=== PATIENT | male | born 1980 | race African-American/Black ===

== ENCOUNTER 2016-12-30 22:31 | Emergency (ER) | payer OTHER ==
--- NOTE | 2016-12-31 00:46 | ED NURSING NOTES ---
Clinical Report - Nurses [facility] [address] [place] [address] 12/30/2016 22:32 Patient: RENU OLIVARES TRIAGE Triage time 22:54. Acuity: LEVEL 4. Chief Complaint: SORE THROAT. Alert. No acute distress. --23:00 Jordana Baer R.N. 22:54 12/30/16. BP: 117/86. HR: 89. RR: 15 (regular and unlabored). O2 saturation: 98% on room air. Temp: 98.5 F (oral). Carpenter-Summers pain scale: 4/10. --23:00 Jordana Baer R.N. Weight: 90.7 kg stated. Height/Length: 70 inches Per Patient. BMI: 28.7. --22:59 Jordana Baer R.N. Medications ASA Oral 81mg , daily . PredniSONE Oral 5 mg, daily. Tacrolimus Oral (Capsule 1 mg) 4 capsules , 2 x daily . Vitamin D Oral, daily. --22:55 Jordana Baer R.N. Myfortic Oral (Tablet Delayed Release 360 mg) 1 tablet, twice daily. --22:56 Jordana Baer R.N. Complete Oral. --22:56 Jordana Baer R.N. OTC Allergy. --22:56 Jordana Baer R.N. Allergies HYDROcodone Bitartrate. Vancomycin. --22:55 Jordana Baer R.N. History Arrived by private vehicle. Historian: patient. Accompanied by family. Primary physician (). Onset. (about 2 - 3 days ago). 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 PAST MEDICAL HX: Immunizations: up-to-date. SOCIAL HX: Never smoker. No alcohol use or drug use. NUTRITIONAL RISK ASSESSMENT: The nutritional risk assessment revealed no deficiencies. FUNCTIONAL ASSESSMENT: Functional assessment: no impairments noted. --23:00 Jordana Baer R.N. PROBLEMS: Pharyngitis. Bronchitis. Cancer. Kidney transpant x 2. --22:57 Jordana Baer R.N. ADDITIONAL SURGERIES: Kidney transplant x 2 . Splenectomy. Thyroid Surgery. Ureter surgery . --:57 Jordana Baer R.N. Interventions ID band on patient. To treatment room. --23:00 Jordana Baer R.N. PHYSICAL ASSESSMENT Ambulatory to room. GENERAL / NEURO / PSYCH: Alert. Oriented X 4. Appears in no acute distress. HEENT: Hoarse voice. Mucous membranes are pink. RESPIRATORY: Respirations not labored. CVS: Capillary refill less than 2 seconds. SKIN: Skin is warm and dry. --23: Jordana Baer R.N. NURSING PROGRESS NOTES Head of bed elevated. Two patient identifiers checked. Call light placed in reach. Side rails up x 1. Bed placed in lowest position. Brakes of bed on. --23: Jordana Baer R.N. Patient ready for evaluation- chart flagged. --23:01 Jordana Baer R.N. 23:42 12/30/2016 Depo-Medrol IM 80 mg given. Given in the right ventral gluteus. Allergies verified and confirmed 5 rights. --23:42 Jordana Baer R.N. ( pt given ice water, per pt request.). --00:31 Jordana Baer R.N. 00:47 12/31/2016 Vistaril (HydrOXYzine Pamoate) PO Capsules 50 mg given. Allergies verified, confirmed 5 rights and sedative warning given to the patient. --00:48 Jordana Baer R.N. DISPOSITION / DISCHARGE 00:48 12/31/16. BP: 123/89. HR: 91. RR: 15. O2 saturation: 98% on room air. Temp: deferred. Carpenter-Summers pain scale: 10. --00:48 Jordana Baer R.N. Condition at departure: stable. No learning barriers present. Discharge instructions provided and reviewed with the patient. Reviewed medication(s) side effects, precautions, dosing and course information. Prescription(s) given to the patient. Patient verbalized understanding. Written instructions provided in Divehi. The patient was discharged home and accompanied by family. He left the Emergency Department ambulatory and via private vehicle. Spouse driving. --00:51 Jordana Baer R.N. Locked/Released at 12/31/2016 0:51 by Jordana Baer R.N.
--- NOTE | 2016-12-31 00:46 | ED CLINICAL REPORT ---
Clinical Report - Physicians/Mid Levels [facility] [address] [place] [address] 12/30/2016 22:32 Patient: RENU OLIVARES Time Seen: 23:03; initial patient contact. Arrived- By private vehicle. Historian- patient. HISTORY OF PRESENT ILLNESS Chief Complaint: COUGH and SORE THROAT. This started about 2 1/2 days ago and is still present. It was gradual in onset and has been constant. The illness is described as mild. The patient has had a cough, a sore throat, hoarseness, nasal congestion and sinus drainage. He has had a nasal discharge. No sputum production, difficulty breathing, chest discomfort, fever or chills. No sinus pressure or ear pain. Additional history - No known contact with a sick individual. Similar symptoms previously: None. Recent medical care: Not recently seen/assessed. REVIEW OF SYSTEMS No headache, nausea or vomiting. He has had mild hay fever. It has been similar to previous symptoms. All systems otherwise negative, except as recorded above. PAST HISTORY Pharyngitis. Bronchitis. Cancer. Kidney transpant x 2. SURGERIES: Kidney transplant x 2 . Splenectomy. Thyroid Surgery. Ureter surgery. SOCIAL HISTORY Never smoker. No alcohol use or drug use. ADDITIONAL NOTES The nursing notes have been reviewed. PHYSICAL EXAM Vital Signs: 12/30/2016 22:54 BP: 117/86. HR: 89. RR: 15. O2 saturation: 98%. Temp: 98.5 F. Carpenter-Summers pain scale: 4/10. Have been reviewed as normal. Appearance: Alert. No acute distress. Eyes: Mild, diffuse redness of the right conjunctiva; mild, diffuse redness of the left conjunctiva. ENT: Moderate generalized pharyngeal erythema with right tonsillar swelling and left tonsillar swelling. No right tonsillar exudate or left tonsillar exudate. Neck: No lymphadenopathy. CVS: Normal heart rate and rhythm. Heart sounds normal. Respiratory: No respiratory distress. Breath sounds normal. Skin: Skin warm and dry. Normal skin color. No rash. Neuro: Oriented X 3. LABS, X-RAYS, AND EKG Laboratory Tests: Culture, Strep Screen: (DANETTE: 12/30/2016 23:20) ( MsgRcvd 12/31/2016 00:11) Final results Test Result Flag Units (Reference) RAPID STREP SCREEN - THROAT DATE: 12/31/16 NEGATIVE SCREEN: RAPID STREP SCREEN NEGATIVE; CONFIRMATION TO FOLLOW . PROGRESS AND PROCEDURES Disposition: Discharged home in good and improved condition. Condition: good. CLINICAL IMPRESSION Acute viral rhinitis. Acute seasonal allergic rhinitis secondary to pollen. INSTRUCTIONS Do not work tomorrow. Your Current Medications: CONTINUE TAKING THE FOLLOWING MEDICATIONS: ASA Oral : 81mg daily. Myfortic Oral : Tablet Delayed Release 360 mg, 1 tablet twice daily. OTC Allergy*. PredniSONE Oral : 5 mg daily. Complete Oral. Tacrolimus Oral : Capsule 1 mg, 4 capsules 2 x daily. Vitamin D Oral : daily. Prescription Medications: Flonase nasal spray: 2 sprays to each nostril daily. Dispense one (1) unit. No refills. Substitution is permissible Follow-up: Follow up with your doctor in about two days if not well. Call for an appointment. Screening today revealed the patient's blood pressure to be in the pre-hypertensive range. The patient should follow up with a primary care provider for blood pressure management. (Electronically signed by Aren Shepard Dr. 12/31/2016 9:18)
--- NOTE | 2016-12-31 00:46 | ED NURSING NOTES ---
Clinical Report - Nurses [facility] [address] [place] [address] 12/30/2016 22:32 Patient: RENU OLIVARES TRIAGE Triage time 22:54. Acuity: LEVEL 4. Chief Complaint: SORE THROAT. Alert. No acute distress. --23:00 Jordana Baer R.N. 22:54 12/30/16. BP: 117/86. HR: 89. RR: 15 (regular and unlabored). O2 saturation: 98% on room air. Temp: 98.5 F (oral). Carpenter-Summers pain scale: 4/10. --23:00 Jordana Baer R.N. Weight: 90.7 kg stated. Height/Length: 70 inches Per Patient. BMI: 28.7. --22:59 Jordana Baer R.N. Medications ASA Oral 81mg , daily . PredniSONE Oral 5 mg, daily. Tacrolimus Oral (Capsule 1 mg) 4 capsules , 2 x daily . Vitamin D Oral, daily. --22:55 Jordana Baer R.N. Myfortic Oral (Tablet Delayed Release 360 mg) 1 tablet, twice daily. --22:56 Jordana Baer R.N. Complete Oral. --22:56 Jordana Baer R.N. OTC Allergy. --22:56 Jordana Baer R.N. Allergies HYDROcodone Bitartrate. Vancomycin. --22:55 Jordana Baer R.N. History Arrived by private vehicle. Historian: patient. Accompanied by family. Primary physician (). Onset. (about 2 - 3 days ago). 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 PAST MEDICAL HX: Immunizations: up-to-date. SOCIAL HX: Never smoker. No alcohol use or drug use. NUTRITIONAL RISK ASSESSMENT: The nutritional risk assessment revealed no deficiencies. FUNCTIONAL ASSESSMENT: Functional assessment: no impairments noted. --23:00 Jordana Baer R.N. PROBLEMS: Pharyngitis. Bronchitis. Cancer. Kidney transpant x 2. --22:57 Jordana Baer R.N. ADDITIONAL SURGERIES: Kidney transplant x 2 . Splenectomy. Thyroid Surgery. Ureter surgery . --:57 Jordana Baer R.N. Interventions ID band on patient. To treatment room. --23:00 Jordana Baer R.N. PHYSICAL ASSESSMENT Ambulatory to room. GENERAL / NEURO / PSYCH: Alert. Oriented X 4. Appears in no acute distress. HEENT: Hoarse voice. Mucous membranes are pink. RESPIRATORY: Respirations not labored. CVS: Capillary refill less than 2 seconds. SKIN: Skin is warm and dry. --23: Jordana Baer R.N. NURSING PROGRESS NOTES Head of bed elevated. Two patient identifiers checked. Call light placed in reach. Side rails up x 1. Bed placed in lowest position. Brakes of bed on. --23: Jordana Baer R.N. Patient ready for evaluation- chart flagged. --23:01 Jordana Baer R.N. 23:42 12/30/2016 Depo-Medrol IM 80 mg given. Given in the right ventral gluteus. Allergies verified and confirmed 5 rights. --23:42 Jordana Baer R.N. ( pt given ice water, per pt request.). --00:31 Jordana Baer R.N. 00:47 12/31/2016 Vistaril (HydrOXYzine Pamoate) PO Capsules 50 mg given. Allergies verified, confirmed 5 rights and sedative warning given to the patient. --00:48 Jordana Baer R.N. DISPOSITION / DISCHARGE 00:48 12/31/16. BP: 123/89. HR: 91. RR: 15. O2 saturation: 98% on room air. Temp: deferred. Carpenter-Summers pain scale: 10. --00:48 Jordana Baer R.N. Condition at departure: stable. No learning barriers present. Discharge instructions provided and reviewed with the patient. Reviewed medication(s) side effects, precautions, dosing and course information. Prescription(s) given to the patient. Patient verbalized understanding. Written instructions provided in Luxembourgish. The patient was discharged home and accompanied by family. He left the Emergency Department ambulatory and via private vehicle. Spouse driving. --00:51 Jordana Baer R.N. Locked/Released at 12/31/2016 0:51 by Jordana Baer R.N.
--- NOTE | 2016-12-31 00:46 | ED CLINICAL REPORT ---
Clinical Report - Physicians/Mid Levels [facility] [address] [place] [address] 12/30/2016 22:32 Patient: RENU OLIVARES Time Seen: 23:03; initial patient contact. Arrived- By private vehicle. Historian- patient. HISTORY OF PRESENT ILLNESS Chief Complaint: COUGH and SORE THROAT. This started about 2 1/2 days ago and is still present. It was gradual in onset and has been constant. The illness is described as mild. The patient has had a cough, a sore throat, hoarseness, nasal congestion and sinus drainage. He has had a nasal discharge. No sputum production, difficulty breathing, chest discomfort, fever or chills. No sinus pressure or ear pain. Additional history - No known contact with a sick individual. Similar symptoms previously: None. Recent medical care: Not recently seen/assessed. REVIEW OF SYSTEMS No headache, nausea or vomiting. He has had mild hay fever. It has been similar to previous symptoms. All systems otherwise negative, except as recorded above. PAST HISTORY Pharyngitis. Bronchitis. Cancer. Kidney transpant x 2. SURGERIES: Kidney transplant x 2 . Splenectomy. Thyroid Surgery. Ureter surgery. SOCIAL HISTORY Never smoker. No alcohol use or drug use. ADDITIONAL NOTES The nursing notes have been reviewed. PHYSICAL EXAM Vital Signs: 12/30/2016 22:54 BP: 117/86. HR: 89. RR: 15. O2 saturation: 98%. Temp: 98.5 F. Carpenter-Summers pain scale: 4/10. Have been reviewed as normal. Appearance: Alert. No acute distress. Eyes: Mild, diffuse redness of the right conjunctiva; mild, diffuse redness of the left conjunctiva. ENT: Moderate generalized pharyngeal erythema with right tonsillar swelling and left tonsillar swelling. No right tonsillar exudate or left tonsillar exudate. Neck: No lymphadenopathy. CVS: Normal heart rate and rhythm. Heart sounds normal. Respiratory: No respiratory distress. Breath sounds normal. Skin: Skin warm and dry. Normal skin color. No rash. Neuro: Oriented X 3. LABS, X-RAYS, AND EKG Laboratory Tests: Culture, Strep Screen: (DANETTE: 12/30/2016 23:20) ( MsgRcvd 12/31/2016 00:11) Final results Test Result Flag Units (Reference) RAPID STREP SCREEN - THROAT DATE: 12/31/16 NEGATIVE SCREEN: RAPID STREP SCREEN NEGATIVE; CONFIRMATION TO FOLLOW . PROGRESS AND PROCEDURES Disposition: Discharged home in good and improved condition. Condition: good. CLINICAL IMPRESSION Acute viral rhinitis. Acute seasonal allergic rhinitis secondary to pollen. INSTRUCTIONS Do not work tomorrow. Your Current Medications: CONTINUE TAKING THE FOLLOWING MEDICATIONS: ASA Oral : 81mg daily. Myfortic Oral : Tablet Delayed Release 360 mg, 1 tablet twice daily. OTC Allergy*. PredniSONE Oral : 5 mg daily. Complete Oral. Tacrolimus Oral : Capsule 1 mg, 4 capsules 2 x daily. Vitamin D Oral : daily. Prescription Medications: Flonase nasal spray: 2 sprays to each nostril daily. Dispense one (1) unit. No refills. Substitution is permissible Follow-up: Follow up with your doctor in about two days if not well. Call for an appointment. Screening today revealed the patient's blood pressure to be in the pre-hypertensive range. The patient should follow up with a primary care provider for blood pressure management. (Electronically signed by Aren Shepard Dr. 12/31/2016 9:18)
--- NOTE | 2016-12-31 00:47 | ED ORDER SUMMARY ---
..... Patient: RENU OLIVARES OrderSheet [facility] VisitID: [id number] [address] [place] [address] 36y, M Registration Date/Time: 12/30/2016 ORDER SHEET Weight: 90.7 kg (stated) Allergies: HYDROcodone Bitartrate, Vancomycin GENERAL ORDERS: Culture, Strep Screen Urgent (23:21 12/30/2016 Henrik Schneider) (23:42 RCollier R.N.) MEDICATION ORDERS: Depo-Medrol IM 80 mg (NOW) (23:21 12/30/2016 Henrik Schneider) (Ack 23:24 RCollier R.N.) (23:42 RCollier R.N.) Vistaril PO 50 mg (NOW) (00:41 12/31/2016 Henrik Schneider) (Ack 0:41 RCollier R.N.) (0:48 RCollier R.N.) IV FLUIDS: ORDER SHEET NOTES: [Electronically signed by Jordana Baer R.N. (00:51 12/31/2016)] [Electronically signed by Aren Shepard Dr. (09:18 12/31/2016)] [Electronically locked/signed by Jordana Baer R.N. (00:51 12/31/2016)]
--- NOTE | 2016-12-31 00:47 | ED ORDER SUMMARY ---
..... Patient: RENU OLIVARES OrderSheet [facility] VisitID: [id number] [address] [place] [address] 36y, M Registration Date/Time: 12/30/2016 ORDER SHEET Weight: 90.7 kg (stated) Allergies: HYDROcodone Bitartrate, Vancomycin GENERAL ORDERS: Culture, Strep Screen Urgent (23:21 12/30/2016 Henrik Schneider) (23:42 RCollier R.N.) MEDICATION ORDERS: Depo-Medrol IM 80 mg (NOW) (23:21 12/30/2016 Henrik Schneider) (Ack 23:24 RCollier R.N.) (23:42 RCollier R.N.) Vistaril PO 50 mg (NOW) (00:41 12/31/2016 Henrik Schneider) (Ack 0:41 RCollier R.N.) (0:48 RCollier R.N.) IV FLUIDS: ORDER SHEET NOTES: [Electronically signed by Jordana Baer R.N. (00:51 12/31/2016)] [Electronically signed by Aren Shepard Dr. (09:18 12/31/2016)] [Electronically locked/signed by Jordana Baer R.N. (00:51 12/31/2016)]
--- NOTE | 2016-12-31 09:18 | ED MED RECONCILIATION SUMMARY ---
Patient: RENU OLIVARES Medication Reconciliation Report [facility] VisitID: [id number] [place] [address] 36y, M Registration Date/Time: 12/30/2016 Weight: 90.7 kg Height/Length: 70 in. BMI: 28.7 ALLERGIES: HYDROcodone Bitartrate, Vancomycin The patient's Home Medications are listed below: CONTINUE TAKING THE FOLLOWING MEDICATIONS: ASA Oral 81mg , daily Myfortic Oral (360 mg) 1 tablet, twice daily OTC Allergy PredniSONE Oral 5 mg, daily Complete Oral Tacrolimus Oral (1 mg) 4 capsules , 2 x daily Vitamin D Oral, daily The source(s) of the original Home Medication information: Not obtained. The following Medications were given to the patient in the Emergency Department: Depo-Medrol [IM] IM 80 mg, administered: 12/30/2016 11:42:00 PM Vistaril [PO] PO 50 mg, administered: 12/31/2016 12:47:00 AM The following Medications were prescribed to the patient: Flonase nasal spray: 2 sprays to each nostril daily. Dispense one (1) unit. No refills. Substitution is permissible -- Aren Shepard Dr.
--- NOTE | 2016-12-31 09:18 | ED MAR SUMMARY ---
..... Medication Administration Record [facility] [address] [place] [address] Patient: RENU OLIVARES Visit ID: [id number] 36y, M Weight: 90.7 kg Height/Length: 70 in BMI: 28.7 ALLERGIES: HYDROcodone Bitartrate, Vancomycin Given 23:42 12/30/2016 Jordana Baer, RDavidN. Medication Administered: DEPO-MEDROL [IM], Dose: 80 mg IM. Medication Ordered: Depo-Medrol IM 80 mg (NOW). Given 00:47 12/31/2016 Jordana Baer, R.N. Medication Administered: VISTARIL [PO] (HYDROXYZINE PAMOATE), Dose: 50 mg Capsules PO. Medication Ordered: Vistaril PO 50 mg (NOW).
--- NOTE | 2016-12-31 09:18 | ED DISCHARGE INSTRUCTIONS ---
Patient: RENU OLIVARES General Instructions [facility] VisitID: [id number] [place] [address] 36y, M Registration Date/Time: 12/30/2016 Acute viral rhinitis. Acute seasonal allergic rhinitis secondary to pollen. INSTRUCTIONS Do not work tomorrow. Your Current Medications: CONTINUE TAKING THE FOLLOWING MEDICATIONS: ASA Oral : 81mg daily. Myfortic Oral : Tablet Delayed Release 360 mg, 1 tablet twice daily. OTC Allergy*. PredniSONE Oral : 5 mg daily. Complete Oral. Tacrolimus Oral : Capsule 1 mg, 4 capsules 2 x daily. Vitamin D Oral : daily. Prescription Medications: Flonase nasal spray: 2 sprays to each nostril daily. Dispense one (1) unit. No refills. Substitution is permissible Follow-up: Follow up with your doctor in about two days if not well. Call for an appointment. Screening today revealed the patient's blood pressure to be in the pre-hypertensive range. The patient should follow up with a primary care provider for blood pressure management. ADDITIONAL INFORMATION Viral Respiratory Illness [Adult] You have an Upper Respiratory Illness (URI) caused by a virus. This illness is contagious during the first few days. It is spread through the air by coughing and sneezing or by direct contact (touching the sick person and then touching your own eyes, nose or mouth). Most viral illnesses go away within 7-10 days with rest and simple home remedies. Sometimes, the illness may last for several weeks. Antibiotics will not kill a virus and are generally not prescribed for this condition. Home Care: 1) If symptoms are severe, rest at home for the first 2-3 days. When you resume activity, don't let yourself get too tired. 2) Avoid being exposed to cigarette smoke (yours or others). 3) Tylenol (acetaminophen) or ibuprofen (Advil, Motrin) will help fever, muscle aching and headache. (Persons under 18 with fever should not take aspirin since this may cause liver damage.) 4) Your appetite may be poor, so a light diet is fine. Avoid dehydration by drinking 6-8 glasses of fluids per day (water, soft drinks, juices, tea, soup). Extra fluids will help loosen secretions in the nose and lungs. 5) Ofua-tex-iyjvuja cold medicines will not shorten the length of time youre sick, but they may be helpful for the following symptoms: cough (Robitussin DM); sore throat (Chloraseptic lozenges or spray); nasal and sinus congestion (Actifed, Sudafed, Chlortrimeton). Follow Up with your doctor or as advised if you dont improve over the next week. Get Prompt Medical Attention if any of the following occur: -- Cough with lots of colored sputum (mucus) or blood in your sputum -- Chest pain, shortness of breath, wheezing or have trouble breathing -- Severe headache; face, neck or ear pain -- Fever over 100.4 F (38.0 C) for more than three days -- You cant swallow due to throat pain Nasal Allergy Nasal Allergy, also called Allergic Rhinitis occurs after exposure to pollen, molds, mildew, animal dander (scales from animal skin, hair and feathers), dust, smoke and fumes. (These are called allergens). When pollen causes a nasal allergy it is commonly called Hay Fever. When these particles contact the lining of the nose, eyes, eyelids, sinuses or throat, they cause the cells to release a chemical called histamine. Histamine may cause a watery discharge from the eyes or nose. It may also cause violent sneezing, nasal congestion, itching of the eyes, nose, throat and mouth. Prevention: Nasal allergy cannot be cured but symptoms can be reduced. Avoid or reduce exposure to the allergen when possible, by the following measures: POLLEN Stay indoors on hot windy days during pollen season Keep windows and doors closed Use an air conditioner with an electrostatic filter DUST, MOLD & MILDEW Follow these measures, especially in the bedroom: When cleaning use vacuum customer specialist, oiled mops and damp cloths; dont stir up the dust. Once a week clean the mercedes, woodwork and floors with a damp mop and vacuum carpets. Once a year clean the bed frame and springs (do this outside). Cover the box springs with plastic. Do not use mattress pads. Remove stuffed chairs and rugs from the bedroom. Discard old moldy books, furniture and bedding. Use synthetic fabrics for furniture, curtains and bedding. Avoid quilts, comforters, and stuffed toys. ANIMAL DANDER Remove all indoor pets (except fish and reptiles). Avoid all contact with furry animals. Avoid down-stuffed pillows and coats. Some persons are also sensitive to wool and should avoid it. OTHER IRRITANTS Do not smoke and avoid the smoke of others. Some persons are sensitive to cosmetic powder, baby powder and powdered laundry detergents. Therefore, these powders should be avoided. Home Care: DECONGESTANT pills and sprays (Sudafed, NeoSynephrine, Afrin), reduce tissue swelling and watery discharge. Overuse of nasal decongestant sprays may make symptoms worse. Do not use these more often than recommended. ANTIHISTAMINES block the release of histamine during the allergic response. Antihistamines are more effective when taken BEFORE symptoms develop. Unless a prescription antihistamine was prescribed, you may take CLARITIN (loratadine). (Claritin is an ruvy-ugp-hjnmyaf antihistamine that does not cause drowsiness.) STEROID nasal sprays (Beconase, Vancenase, Nasalide) or oral steroids (Prednisone) may also be prescribed for more severe symptoms. These help to reduce the local inflammation which adds to the allergic response. If you have ASTHMA, pollen season may make your asthma symptoms worse. It is important that you use your asthma medicines as directed during this time to prevent or treat attacks. Some persons with asthma have a worsening of their asthma symptoms when taking antihistamines. If you notice this, stop the antihistamines and notify your doctor. Follow Up with your doctor or as directed by our staff if your symptoms are not improving with the treatment advised. Get Prompt Medical Attention if any of the following occur: Facial or sinus pain or colored drainage from the nose Severe headache or ear pain Fever of 100.4F (38C) or higher, or as directed by your healthcare provider Wheezing or trouble breathing (If you already know you have asthma, return if your asthma symptoms do not respond to the usual doses of your medicine) Cough with lots of colored sputum (mucus) Fluticasone Propionate Nasal spray, solution What is this medicine? FLUTICASONE (floo TIK a sone) is a corticosteroid. It helps decrease inflammation in your nose. This medicine is used to treat the symptoms of allergies like sneezing, itching, and runny or stuffy nose. How should I use this medicine? This medicine is for use in the nose. Follow the directions on your prescription label. This medicine works best if used regularly. Do not use more often than directed. Make sure that you are using your nasal spray correctly. Ask you doctor or health care provider if you have any questions. Talk to your oracle apex developer regarding the use of this medicine in children. While this drug may be prescribed for children as young as 4 years old for selected conditions, precautions do apply. What side effects may I notice from receiving this medicine? Side effects that you should report to your doctor or health health care liaison as soon as possible: allergic reactions like skin rash, itching or hives, swelling of the face, lips, or tongue changes in vision flu-like symptoms white patches or sores in the mouth or nose Side effects that usually do not require medical attention (report to your doctor or health health care liaison if they continue or are bothersome): burning or irritation inside the nose or throat cough headache nosebleed unusual taste or smell What may interact with this medicine? ketoconazole metyrapone some medicines for HIV vaccines What if I miss a dose? If you miss a dose, use it as soon as you remember. If it is almost time for your next dose, use only that dose and continue with your regular schedule. Do not use double or extra doses. Where should I keep my medicine? Keep out of the reach of children. Store at room temperature between 15 and 30 degrees C (59 and 86 degrees F). Throw away any unused medicine after the expiration date. What should I tell my health care provider before I take this medicine? They need to know if you have any of these conditions: infection, like tuberculosis, herpes, or fungal infection recent surgery on nose or sinuses taking corticosteroid by mouth an unusual or allergic reaction to fluticasone, steroids, other medicines, foods, dyes, or preservatives or trying to get breast-feeding What should I watch for while using this medicine? Visit your doctor or health health care liaison for regular checks on your progress. Some symptoms may improve within 12 hours after starting use. Check with your doctor or health health care liaison if there is no improvement in your condition after 3 weeks of use. Do not come in contact with people who have chickenpox or the measles while you are taking this medicine. If you do, call your doctor right away. You have been given the following additional information: Uri, Viral, No Abx (Adult) Allergic Rhinitis Fluticasone Propionate Nasal spray, solution Do not work tomorrow. (Electronically signed by Aren Shepard Dr. 12/31/2016 9:18)
--- NOTE | 2016-12-31 09:18 | ED MAR SUMMARY ---
..... Medication Administration Record Formerly [facility] [address] [place] [address] Patient: RENU OLIVARES Visit ID: [id number] 36y, M Weight: 90.7 kg Height/Length: 70 in BMI: 28.7 ALLERGIES: HYDROcodone Bitartrate, Vancomycin Given 23:42 12/30/2016 Jordana Baer, RDavidN. Medication Administered: DEPO-MEDROL [IM], Dose: 80 mg IM. Medication Ordered: Depo-Medrol IM 80 mg (NOW). Given 00:47 12/31/2016 Jordana Baer, R.N. Medication Administered: VISTARIL [PO] (HYDROXYZINE PAMOATE), Dose: 50 mg Capsules PO. Medication Ordered: Vistaril PO 50 mg (NOW).
--- NOTE | 2016-12-31 09:18 | ED DISCHARGE INSTRUCTIONS ---
Patient: RENU OLIVARES General Instructions [facility] VisitID: [id number] [place] [address] 36y, M Registration Date/Time: 12/30/2016 Acute viral rhinitis. Acute seasonal allergic rhinitis secondary to pollen. INSTRUCTIONS Do not work tomorrow. Your Current Medications: CONTINUE TAKING THE FOLLOWING MEDICATIONS: ASA Oral : 81mg daily. Myfortic Oral : Tablet Delayed Release 360 mg, 1 tablet twice daily. OTC Allergy*. PredniSONE Oral : 5 mg daily. Complete Oral. Tacrolimus Oral : Capsule 1 mg, 4 capsules 2 x daily. Vitamin D Oral : daily. Prescription Medications: Flonase nasal spray: 2 sprays to each nostril daily. Dispense one (1) unit. No refills. Substitution is permissible Follow-up: Follow up with your doctor in about two days if not well. Call for an appointment. Screening today revealed the patient's blood pressure to be in the pre-hypertensive range. The patient should follow up with a primary care provider for blood pressure management. ADDITIONAL INFORMATION Viral Respiratory Illness [Adult] You have an Upper Respiratory Illness (URI) caused by a virus. This illness is contagious during the first few days. It is spread through the air by coughing and sneezing or by direct contact (touching the sick person and then touching your own eyes, nose or mouth). Most viral illnesses go away within 7-10 days with rest and simple home remedies. Sometimes, the illness may last for several weeks. Antibiotics will not kill a virus and are generally not prescribed for this condition. Home Care: 1) If symptoms are severe, rest at home for the first 2-3 days. When you resume activity, don't let yourself get too tired. 2) Avoid being exposed to cigarette smoke (yours or others). 3) Tylenol (acetaminophen) or ibuprofen (Advil, Motrin) will help fever, muscle aching and headache. (Persons under 18 with fever should not take aspirin since this may cause liver damage.) 4) Your appetite may be poor, so a light diet is fine. Avoid dehydration by drinking 6-8 glasses of fluids per day (water, soft drinks, juices, tea, soup). Extra fluids will help loosen secretions in the nose and lungs. 5) Lfyd-vjq-pbvlysv cold medicines will not shorten the length of time youre sick, but they may be helpful for the following symptoms: cough (Robitussin DM); sore throat (Chloraseptic lozenges or spray); nasal and sinus congestion (Actifed, Sudafed, Chlortrimeton). Follow Up with your doctor or as advised if you dont improve over the next week. Get Prompt Medical Attention if any of the following occur: -- Cough with lots of colored sputum (mucus) or blood in your sputum -- Chest pain, shortness of breath, wheezing or have trouble breathing -- Severe headache; face, neck or ear pain -- Fever over 100.4 F (38.0 C) for more than three days -- You cant swallow due to throat pain Nasal Allergy Nasal Allergy, also called Allergic Rhinitis occurs after exposure to pollen, molds, mildew, animal dander (scales from animal skin, hair and feathers), dust, smoke and fumes. (These are called allergens). When pollen causes a nasal allergy it is commonly called Hay Fever. When these particles contact the lining of the nose, eyes, eyelids, sinuses or throat, they cause the cells to release a chemical called histamine. Histamine may cause a watery discharge from the eyes or nose. It may also cause violent sneezing, nasal congestion, itching of the eyes, nose, throat and mouth. Prevention: Nasal allergy cannot be cured but symptoms can be reduced. Avoid or reduce exposure to the allergen when possible, by the following measures: POLLEN Stay indoors on hot windy days during pollen season Keep windows and doors closed Use an air conditioner with an electrostatic filter DUST, MOLD & MILDEW Follow these measures, especially in the bedroom: When cleaning use vacuum toll line mechanic, oiled mops and damp cloths; dont stir up the dust. Once a week clean the mercedes, woodwork and floors with a damp mop and vacuum carpets. Once a year clean the bed frame and springs (do this outside). Cover the box springs with plastic. Do not use mattress pads. Remove stuffed chairs and rugs from the bedroom. Discard old moldy books, furniture and bedding. Use synthetic fabrics for furniture, curtains and bedding. Avoid quilts, comforters, and stuffed toys. ANIMAL DANDER Remove all indoor pets (except fish and reptiles). Avoid all contact with furry animals. Avoid down-stuffed pillows and coats. Some persons are also sensitive to wool and should avoid it. OTHER IRRITANTS Do not smoke and avoid the smoke of others. Some persons are sensitive to cosmetic powder, baby powder and powdered laundry detergents. Therefore, these powders should be avoided. Home Care: DECONGESTANT pills and sprays (Sudafed, NeoSynephrine, Afrin), reduce tissue swelling and watery discharge. Overuse of nasal decongestant sprays may make symptoms worse. Do not use these more often than recommended. ANTIHISTAMINES block the release of histamine during the allergic response. Antihistamines are more effective when taken BEFORE symptoms develop. Unless a prescription antihistamine was prescribed, you may take CLARITIN (loratadine). (Claritin is an vlvr-fem-pxbdigt antihistamine that does not cause drowsiness.) STEROID nasal sprays (Beconase, Vancenase, Nasalide) or oral steroids (Prednisone) may also be prescribed for more severe symptoms. These help to reduce the local inflammation which adds to the allergic response. If you have ASTHMA, pollen season may make your asthma symptoms worse. It is important that you use your asthma medicines as directed during this time to prevent or treat attacks. Some persons with asthma have a worsening of their asthma symptoms when taking antihistamines. If you notice this, stop the antihistamines and notify your doctor. Follow Up with your doctor or as directed by our staff if your symptoms are not improving with the treatment advised. Get Prompt Medical Attention if any of the following occur: Facial or sinus pain or colored drainage from the nose Severe headache or ear pain Fever of 100.4F (38C) or higher, or as directed by your healthcare provider Wheezing or trouble breathing (If you already know you have asthma, return if your asthma symptoms do not respond to the usual doses of your medicine) Cough with lots of colored sputum (mucus) Fluticasone Propionate Nasal spray, solution What is this medicine? FLUTICASONE (floo TIK a sone) is a corticosteroid. It helps decrease inflammation in your nose. This medicine is used to treat the symptoms of allergies like sneezing, itching, and runny or stuffy nose. How should I use this medicine? This medicine is for use in the nose. Follow the directions on your prescription label. This medicine works best if used regularly. Do not use more often than directed. Make sure that you are using your nasal spray correctly. Ask you doctor or health care provider if you have any questions. Talk to your garment finisher regarding the use of this medicine in children. While this drug may be prescribed for children as young as 4 years old for selected conditions, precautions do apply. What side effects may I notice from receiving this medicine? Side effects that you should report to your doctor or health child care education coordinator as soon as possible: allergic reactions like skin rash, itching or hives, swelling of the face, lips, or tongue changes in vision flu-like symptoms white patches or sores in the mouth or nose Side effects that usually do not require medical attention (report to your doctor or health child care education coordinator if they continue or are bothersome): burning or irritation inside the nose or throat cough headache nosebleed unusual taste or smell What may interact with this medicine? ketoconazole metyrapone some medicines for HIV vaccines What if I miss a dose? If you miss a dose, use it as soon as you remember. If it is almost time for your next dose, use only that dose and continue with your regular schedule. Do not use double or extra doses. Where should I keep my medicine? Keep out of the reach of children. Store at room temperature between 15 and 30 degrees C (59 and 86 degrees F). Throw away any unused medicine after the expiration date. What should I tell my health care provider before I take this medicine? They need to know if you have any of these conditions: infection, like tuberculosis, herpes, or fungal infection recent surgery on nose or sinuses taking corticosteroid by mouth an unusual or allergic reaction to fluticasone, steroids, other medicines, foods, dyes, or preservatives or trying to get breast-feeding What should I watch for while using this medicine? Visit your doctor or health child care education coordinator for regular checks on your progress. Some symptoms may improve within 12 hours after starting use. Check with your doctor or health child care education coordinator if there is no improvement in your condition after 3 weeks of use. Do not come in contact with people who have chickenpox or the measles while you are taking this medicine. If you do, call your doctor right away. You have been given the following additional information: Uri, Viral, No Abx (Adult) Allergic Rhinitis Fluticasone Propionate Nasal spray, solution Do not work tomorrow. (Electronically signed by Aren Shepard Dr. 12/31/2016 9:18)
--- NOTE | 2016-12-31 09:18 | ED MED RECONCILIATION SUMMARY ---
Patient: RENU OLIVARES Medication Reconciliation Report [facility] VisitID: [id number] [place] [address] 36y, M Registration Date/Time: 12/30/2016 Weight: 90.7 kg Height/Length: 70 in. BMI: 28.7 ALLERGIES: HYDROcodone Bitartrate, Vancomycin The patient's Home Medications are listed below: CONTINUE TAKING THE FOLLOWING MEDICATIONS: ASA Oral 81mg , daily Myfortic Oral (360 mg) 1 tablet, twice daily OTC Allergy PredniSONE Oral 5 mg, daily Complete Oral Tacrolimus Oral (1 mg) 4 capsules , 2 x daily Vitamin D Oral, daily The source(s) of the original Home Medication information: Not obtained. The following Medications were given to the patient in the Emergency Department: Depo-Medrol [IM] IM 80 mg, administered: 12/30/2016 11:42:00 PM Vistaril [PO] PO 50 mg, administered: 12/31/2016 12:47:00 AM The following Medications were prescribed to the patient: Flonase nasal spray: 2 sprays to each nostril daily. Dispense one (1) unit. No refills. Substitution is permissible -- Aren Shepard Dr.
== END 2016-12-31 00:50 | disposition home or self-care (01) ==
LOC: ED SRH 22:31
DX: J02.0 Streptococcal pharyngitis (principal); J00 Acute nasopharyngitis [common cold]; J30.1 Allergic rhinitis due to pollen; Z94.0 Kidney transplant status
CPT/HCPCS: 90154; 90159; 90627